=== PATIENT | male | born 1985 | race Caucasian/White ===

== ENCOUNTER 2017-08-15 17:25 | Emergency (ER) | payer MEDICAID ==
[~2017-08-15] VITALS: Ht 167.6 cm; Wt 159.0 kg
[2017-08-15 21:36] LABS: CLARITY URINE CLEAR (CLEAR); COLOR URINE DARK YELLOW (YELLOW); KETONES URINE TRACE (NEGATIVE); LEUKOCYTE ESTERASE URINE NEGATIVE (NEGATIVE); NITRITE URINE NEGATIVE (NEGATIVE); OCCULT BLOOD URINE TRACE (NEGATIVE); PROTEIN URINE TRACE (NEGATIVE); SPECIFIC GRAVITY URINE 1.017 (1.005-1.030)
[2017-08-15] MEDS ORDERED: KETOROLAC 30MG/ML VIAL IV STA (22:22)
[2017-08-15] MEDS ORDERED: SODIUM CHLORIDE 0.9% 1,000 ML IV ONE (22:22)
[2017-08-15] MEDS ORDERED: METOCLOPRAMIDE HCL 10MG/2ML VIAL IV ONE (22:30)
[2017-08-15] MEDS ORDERED: DIPHENHYDRAMINE 50MG/ML VIAL IV ONE (22:30)
[2017-08-15 22:55] LABS: BASOPHILS % 0.1 % (0.0-2.0); EOSINOPHILS % 0.2 % (0.0-5.0); HEMOGLOBIN. 14.2 g/dL (14.0-18.0); LYMPHOCYTES % 6.6 % (20.0-50.0); MEAN CORPUSCULAR HEMOGLOBIN 29.4 pg (28.0-32.0); MEAN CORPUSCULAR VOLUME 86.6 fL (80.0-94.0); MEAN PLATELET VOLUME 8.9 fl (7.4-10.4); MONOCYTES % 5.1 % (2.0-8.0); PLATELET 203 x1000/uL (130-400); RED BLOOD CELL COUNT 4.85 mill/uL (4.7-6.1); RED CELL DISTRIBUTION WIDTH 13.3 % (11.6-14.6)
[2017-08-15 23:02] LABS: CHLORIDE 93 mEq/L (98-107)
[2017-08-16 01:10] VITALS: BP 112/67
[2017-08-16] MEDS ORDERED: AZITHROMYCIN 500 MG TABLET PO ONE (01:15)
== END 2017-08-16 01:55 | disposition home or self-care (01) ==
LOC: ER 17:25
DX: J18.9 Pneumonia, unspecified organism (principal); R51 Headache; R11.2 Nausea with vomiting, unspecified; H92.01 Otalgia, right ear; J45.909 Unspecified asthma, uncomplicated; R07.9 Chest pain, unspecified
CPT/HCPCS: 36415; 71045; 80053; 81003; 85025; 87804; 93005; 96361; 96374; 96375; 99285; J1200; J1885; J2765; J7030; Z7610

== ENCOUNTER 2019-05-16 23:22 | Inpatient (IN) | payer MEDICAID ==
[~2019-05-16] VITALS: Ht 167.6 cm; Wt 154.2 kg
[2019-05-17] MEDS ORDERED: SODIUM CHLORIDE 0.9% 1,000 ML IV ONE (00:31)
[2019-05-17] MEDS ORDERED: MAGNESIUM/ALUMINUM HYDROXIDE/SIMETHICONE 30ML UDC PO STA (00:31)
[2019-05-17] MEDS ORDERED: MORPHINE SULFATE 4 MG/ML CPJ (NOT FOR IM USE) IV STA (00:31)
[2019-05-17] MEDS ORDERED: ONDANSETRON HCL 4MG/2ML INJ IV STA (00:31)
[2019-05-17 00:53] LABS: BASOPHILS % 0.5 % (0.0-2.0); EOSINOPHILS % 0.6 % (0.0-5.0); HEMATOCRIT. 43.1 % (42.0-52.0); HEMOGLOBIN. 14.7 g/dL (14.0-18.0); LYMPHOCYTES % 15.9 % (20.0-50.0); MEAN CORPUSCULAR HEMOGLOBIN 30.1 pg (28.0-32.0); MEAN CORPUSCULAR VOLUME 88.5 fL (80.0-94.0); MEAN PLATELET VOLUME 8.9 fl (7.4-10.4); MONOCYTES % 3.1 % (2.0-8.0); NEUTROPHILS % 79.9 % (40.0-76.0); PLATELET 237 x1000/uL (130-400); RED BLOOD CELL COUNT 4.87 mill/uL (4.7-6.1); RED CELL DISTRIBUTION WIDTH 12.9 % (11.6-14.6)
[2019-05-17 01:02] LABS: CHLORIDE 107 mEq/L (98-107)
[2019-05-17 01:05] LABS: ETHANOL BLOOD < 10 mg/dL
[2019-05-17] MEDS ORDERED: FENTANYL CITRATE/PF 50MCG/ML 2ML VIAL IV ONE (01:45)
[2019-05-17 08:00] VITALS: BP 158/94
[2019-05-17 08:50] VITALS: BP 158/94
[2019-05-17] MEDS: DEXT 5%/0.45% NACL 1000ML 1,000 ML IV SCH ×2 (11:55→23:26)
[2019-05-17 12:00] VITALS: BP 145/82
[2019-05-17] MEDS: ONDANSETRON HCL 4MG/2ML INJ IV PRN (13:07)
[2019-05-17] MEDS: MORPHINE SULFATE 2 MG/ML CPJ (NOT FOR IM USE) IV PRN (13:08)
[2019-05-17 16:00] VITALS: BP 131/80
[2019-05-17] MEDS: ACETAMINOPHEN 325MG TABLET PO PRN ×2 (17:26→23:34)
[2019-05-17] MEDS ORDERED: PIPERACILLIN/TAZOBACTAM 3.375 G in DEXT 5% WATER 100 ML IV SCH (17:30)
[2019-05-17] MEDS: PIPERACILLIN/TAZOBACTAM 3.375 G in DEXT 5% WATER 100 ML IV SCH ×2 (19:04→23:57)
[2019-05-17 20:00] VITALS: BP 105/60
[2019-05-17] MEDS: FAMOTIDINE 20MG TABLET PO SCH (20:23)
[2019-05-17] MEDS ORDERED: DIATR MEGLU/DIATRIZOATE SOLN 30ML PO SCH (20:45)
[2019-05-17] MEDS: ENOXAPARIN 40MG/0.4ML SYR SUBCUT SCH (21:37)
[2019-05-18] VITALS: BP 121/86
[2019-05-18] MEDS: ONDANSETRON HCL 4MG/2ML INJ IV PRN ×2 (00:01→11:10)
[2019-05-18] MEDS ORDERED: IOHEXOL-300 100 ML BOTTLE ONE (01:49)
[2019-05-18 04:00] VITALS: BP 107/79
[2019-05-18] MEDS: PIPERACILLIN/TAZOBACTAM 3.375 G in DEXT 5% WATER 100 ML IV SCH ×3 (06:12→18:21)
[2019-05-18 06:28] LABS: BASOPHILS % 0.3 % (0.0-2.0); EOSINOPHILS % 1.8 % (0.0-5.0); HEMATOCRIT. 41.9 % (42.0-52.0); HEMOGLOBIN. 14.3 g/dL (14.0-18.0); LYMPHOCYTES % 19.4 % (20.0-50.0); MEAN CORPUSCULAR HEMOGLOBIN 30.1 pg (28.0-32.0); MEAN CORPUSCULAR VOLUME 88.4 fL (80.0-94.0); MEAN PLATELET VOLUME 9.4 fl (7.4-10.4); MONOCYTES % 7.2 % (2.0-8.0); NEUTROPHILS % 71.3 % (40.0-76.0); PLATELET 222 x1000/uL (130-400); RED BLOOD CELL COUNT 4.74 mill/uL (4.7-6.1); RED CELL DISTRIBUTION WIDTH 13.1 % (11.6-14.6)
[2019-05-18] MEDS: ACETAMINOPHEN 325MG TABLET PO PRN (06:28)
[2019-05-18 06:40] LABS: CHLORIDE 105 mEq/L (98-107)
[2019-05-18 08:00] VITALS: BP 116/75
[2019-05-18] MEDS: ENOXAPARIN 40MG/0.4ML SYR SUBCUT SCH ×2 (09:15→20:56)
[2019-05-18] MEDS: MORPHINE SULFATE 2 MG/ML CPJ (NOT FOR IM USE) IV PRN ×3 (11:05→21:20)
[2019-05-18 12:00] VITALS: BP 119/73
[2019-05-18] MEDS: DEXT 5%/0.45% NACL 1000ML 1,000 ML IV SCH (12:48)
[2019-05-18 20:00] VITALS: BP 109/58
[2019-05-18 20:31] LABS: CLARITY URINE CLEAR (CLEAR); COLOR URINE YELLOW (YELLOW); KETONES URINE NEGATIVE (NEGATIVE); LEUKOCYTE ESTERASE URINE NEGATIVE (NEGATIVE); NITRITE URINE NEGATIVE (NEGATIVE); OCCULT BLOOD URINE NEGATIVE (NEGATIVE); PROTEIN URINE NEGATIVE (NEGATIVE); SPECIFIC GRAVITY URINE 1.021 (1.005-1.030)
[2019-05-18 20:43] LABS: *AMPHETAMINES SCREEN URINE NEGATIVE (NEGATIVE); *BARBITURATES SCREEN URINE NEGATIVE (NEGATIVE); *BENZODIAZEPINES SCREEN URINE NEGATIVE (NEGATIVE); *COCAINE SCREEN URINE NEGATIVE (NEGATIVE); METHADONE URINE SCREEN NEGATIVE (NEGATIVE)
[2019-05-18 20:44] LABS: CANNABINOID URINE SCREEN NEGATIVE (NEGATIVE); OPIATES URINE SCREEN PRESUMTIVE POSITIVE (NEGATIVE); PHENCYCLIDINE URINE SCREEN NEGATIVE (NEGATIVE)
[2019-05-18] MEDS: FAMOTIDINE 20MG TABLET PO SCH (20:54)
[2019-05-19] VITALS: BP 111/61
[2019-05-19] MEDS: DEXT 5%/0.45% NACL 1000ML 1,000 ML IV SCH ×2 (00:23→09:16)
[2019-05-19] MEDS: PIPERACILLIN/TAZOBACTAM 3.375 G in DEXT 5% WATER 100 ML IV SCH ×4 (00:23→23:26)
[2019-05-19 04:00] VITALS: BP 103/55
[2019-05-19] MEDS: MORPHINE SULFATE 2 MG/ML CPJ (NOT FOR IM USE) IV PRN (07:01)
[2019-05-19 08:00] VITALS: BP 106/56
[2019-05-19] MEDS: ENOXAPARIN 40MG/0.4ML SYR SUBCUT SCH (09:00)
[2019-05-19] MEDS ORDERED: SKIN ADHESIVE 0.7 GM EA TOP ONE (09:47)
[2019-05-19] MEDS ORDERED: INDOCYANINE GREEN 25 MG VIAL IV ONE (09:47)
[2019-05-19] MEDS ORDERED: NORMAL SALINE 0.9% 10 ML SYR ONE (09:48)
[2019-05-19] MEDS ORDERED: BUPIVACAINE HCL/PF 0.25% (2.5MG/ML) 10ML ONE (09:48)
[2019-05-19] MEDS ORDERED: BACITRACIN 50,000 UNITS/VIAL ONE (09:48)
[2019-05-19] MEDS ORDERED: LIDOCAINE HCL 1% 20ML VIAL (Pyxis) INJ ONE (09:48)
[2019-05-19] MEDS ORDERED: BUPIVACAINE HCL/PF 0.5% (5MG/ML) 10ML ONE (09:54)
[2019-05-19] MEDS ORDERED: NEOSTIGMINE METHYLSULFATE 1MG/ML 10 ML VIAL ONE (10:47)
[2019-05-19] MEDS ORDERED: ROCURONIUM BROMIDE 10MG/ML VIAL 5ML IV ONE ×2 (10:47→10:57)
[2019-05-19] MEDS ORDERED: FENTANYL CITRATE/PF 50MCG/ML 2ML VIAL ONE ×4 (10:47→12:24)
[2019-05-19] MEDS ORDERED: GLYCOPYRROLATE 0.2 MG/ML 2ML VIAL ONE (10:47)
[2019-05-19] MEDS ORDERED: MIDAZOLAM HCL 2 MG/2 ML VIAL ONE (10:47)
[2019-05-19] MEDS ORDERED: PROPOFOL 200MG/20ML VIAL IV ONE ×2 (10:47→13:31)
[2019-05-19] MEDS ORDERED: CEFAZOLIN SODIUM 1000MG/VIAL ONE (10:48)
[2019-05-19] MEDS ORDERED: SODIUM CHLORIDE 0.9% 10ML VIAL ONE (10:48)
[2019-05-19] MEDS ORDERED: ONDANSETRON HCL 4MG/2ML INJ ONE (10:48)
[2019-05-19] MEDS ORDERED: SUCCINYLCHOLINE CHLORIDE 200MG/10ML IV ONE (10:48)
[2019-05-19] MEDS ORDERED: EPHEDRINE SULFATE 50MG/ML VIAL ONE (10:48)
[2019-05-19] MEDS ORDERED: METOCLOPRAMIDE HCL 10MG/2ML VIAL ONE (10:48)
[2019-05-19] MEDS ORDERED: ONDANSETRON HCL 4MG/2ML INJ IV PRN (13:15)
[2019-05-19] MEDS ORDERED: MEPERIDINE HCL/PF 25MG/ML CPJ IV PRN ×2 (13:15)
[2019-05-19] MEDS ORDERED: MORPHINE SULFATE 2 MG/ML CPJ (NOT FOR IM USE) IV PRN (13:15)
[2019-05-19] MEDS ORDERED: HYDROMORPHONE HCL/PF 2MG/ML CPJ IV PRN (13:15)
[2019-05-19] MEDS ORDERED: HYDROMORPHONE HCL/PF 2MG/ML (OR) ONE (13:35)
[2019-05-19] MEDS ORDERED: SODIUM CHLORIDE 0.9% 1,000 ML IV ONE (13:41)
[2019-05-19 16:40] VITALS: BP 128/77
[2019-05-19] MEDS: HYDROMORPHONE HCL/PF 2MG/ML CPJ IV PRN ×3 (17:05→23:27)
[2019-05-19 20:00] VITALS: BP 125/83
[2019-05-19] MEDS: ONDANSETRON HCL 4MG/2ML INJ IV PRN (20:37)
[2019-05-19] MEDS: FAMOTIDINE 20MG TABLET PO SCH (21:09)
[2019-05-20] MEDS: ONDANSETRON HCL 4MG/2ML INJ IV PRN (03:22)
[2019-05-20] MEDS: HYDROMORPHONE HCL/PF 2MG/ML CPJ IV PRN ×4 (03:23→19:48)
[2019-05-20 04:00] VITALS: BP 130/59
[2019-05-20 07:05] LABS: BASOPHILS % 0.2 % (0.0-2.0); EOSINOPHILS % 0.3 % (0.0-5.0); HEMATOCRIT. 39.6 % (42.0-52.0); HEMOGLOBIN. 13.3 g/dL (14.0-18.0); LYMPHOCYTES % 11.5 % (20.0-50.0); MEAN CORPUSCULAR VOLUME 88.9 fL (80.0-94.0); MEAN PLATELET VOLUME 9.2 fl (7.4-10.4); MONOCYTES % 8.9 % (2.0-8.0); NEUTROPHILS % 79.1 % (40.0-76.0); PLATELET 236 x1000/uL (130-400); RED BLOOD CELL COUNT 4.45 mill/uL (4.7-6.1); RED CELL DISTRIBUTION WIDTH 12.9 % (11.6-14.6)
[2019-05-20 07:24] LABS: CHLORIDE 101 mEq/L (98-107)
[2019-05-20] MEDS: PIPERACILLIN/TAZOBACTAM 3.375 G in DEXT 5% WATER 100 ML IV SCH ×4 (07:53→23:35)
[2019-05-20 08:00] VITALS: BP 128/62
[2019-05-20 12:00] VITALS: BP 133/67
[2019-05-20] MEDS: HYDROCODONE/ACETAMINOPHEN 10/325MG TABLET PO PRN (12:36)
[2019-05-20 16:00] VITALS: BP 134/75
[2019-05-20 20:00] VITALS: BP 125/60
[2019-05-20] MEDS: FAMOTIDINE 20MG TABLET PO SCH (20:02)
[2019-05-21] VITALS: BP 122/76
[2019-05-21] MEDS: DEXT 5%/0.45% NACL 1000ML 1,000 ML IV SCH ×5 (01:30→20:50)
[2019-05-21] MEDS: HYDROMORPHONE HCL/PF 2MG/ML CPJ IV PRN ×5 (01:33→18:43)
[2019-05-21 04:00] VITALS: BP 114/71
[2019-05-21] MEDS: PIPERACILLIN/TAZOBACTAM 3.375 G in DEXT 5% WATER 100 ML IV SCH ×3 (06:23→17:54)
[2019-05-21 07:51] LABS: BASOPHILS % 0.3 % (0.0-2.0); EOSINOPHILS % 3.5 % (0.0-5.0); HEMATOCRIT. 38.1 % (42.0-52.0); HEMOGLOBIN. 13.1 g/dL (14.0-18.0); LYMPHOCYTES % 13.6 % (20.0-50.0); MEAN CORPUSCULAR HEMOGLOBIN 30.7 pg (28.0-32.0); MEAN CORPUSCULAR VOLUME 89.1 fL (80.0-94.0); MEAN PLATELET VOLUME 9.2 fl (7.4-10.4); MONOCYTES % 9.8 % (2.0-8.0); NEUTROPHILS % 72.8 % (40.0-76.0); PLATELET 210 x1000/uL (130-400); RED BLOOD CELL COUNT 4.27 mill/uL (4.7-6.1); RED CELL DISTRIBUTION WIDTH 13.3 % (11.6-14.6)
[2019-05-21 08:00] VITALS: BP 109/73
[2019-05-21 08:03] LABS: CHLORIDE 100 mEq/L (98-107)
[2019-05-21] MEDS: ENOXAPARIN 40MG/0.4ML SYR SUBCUT SCH ×2 (10:40→20:44)
[2019-05-21 12:00] VITALS: BP 120/72
[2019-05-21 16:00] VITALS: BP 128/75
[2019-05-21 20:00] VITALS: BP 126/88
[2019-05-21] MEDS: FAMOTIDINE 20MG TABLET PO SCH (20:44)
[2019-05-22] VITALS: BP 131/79
[2019-05-22] MEDS: HYDROMORPHONE HCL/PF 2MG/ML CPJ IV PRN (00:14)
[2019-05-22] MEDS: PIPERACILLIN/TAZOBACTAM 3.375 G in DEXT 5% WATER 100 ML IV SCH ×2 (00:18→06:21)
[2019-05-22 04:00] VITALS: BP 138/82
[2019-05-22] MEDS: HYDROCODONE/ACETAMINOPHEN 10/325MG TABLET PO PRN ×2 (04:06→08:07)
[2019-05-22 04:20] VITALS: BP 138/82
[2019-05-22 08:07] VITALS: BP 129/76
== END 2019-05-22 08:00 | disposition home or self-care (01) | DRG 710 ==
LOC: ER 23:22 → 6EST 05-17 05:27 → EDBEDREQTM 05-17 05:29 → EDBEDREQ 05-17 05:29 → ENRESERV 05-17 07:05
PROVIDERS: ADMIT Internal Medicine; ATTEND Internal Medicine
PROC: 0FT44ZZ Resection of Gallbladder, Percutaneous Endoscopic Approach (ICD-10-PCS; principal; 2019-05-19)
PROC: 8E0W4CZ Robotic Assisted Procedure of Trunk Region, Percutaneous Endoscopic Approach (ICD-10-PCS; 2019-05-19)
DX: A41.9 Sepsis, unspecified organism (principal); K80.00 Calculus of gallbladder with acute cholecystitis without obstruction; K76.0 Fatty (change of) liver, not elsewhere classified; E66.01 Morbid (severe) obesity due to excess calories; J45.909 Unspecified asthma, uncomplicated; K82.8 Other specified diseases of gallbladder; K82.A1 Gangrene of gallbladder in cholecystitis; Z68.43 Body mass index [BMI] 50.0-59.9, adult; Z71.3 Dietary counseling and surveillance
CPT/HCPCS: 36415; 71045; 74177; 76700; 78227; 80048; 80305; 80320; 81003; 83036; 83605; 88304; 93005; 99285; A9537; J0330; J0690; J1170; J1650; J2250; J2270; J2405; J2543; J2704; J2710; J2765; J3010; J3490; J7030; J7042; J7060; Q9957; Q9963; Q9967; G0480